=== PATIENT | female | born 1955 | race Caucasian/White ===

== ENCOUNTER → 2018-10-08 | Outpatient (CLI) | payer MEDICARE, BC | END | disposition home or self-care (01) | LOC: PLD 09:26 → LAB SHORT 09:26 | DX: L82.1 Other seborrheic keratosis (principal) | CPT/HCPCS: 88305 ==

== ENCOUNTER 2018-10-12 07:19 | Day surgery (SDC) | payer MEDICARE, BC ==
[~2018-10-12] VITALS: Ht 167.6 cm; Wt 79.5 kg
--- NOTE | 2018-10-12 08:03 | NUR ---
10/12/18 0803 Janice Braden V PT RESTING IN BED, SIDE RAILS IN PLACE, CALL LIGHT WITHIN REACH, VSS. PT TEACHING COMPLETED/ PT DENIES PAIN, DISCOMFORT, AND QUESTIONS AT THIS POINT.
--- NOTE | 2018-10-12 14:32 | NUR ---
10/12/18 1432 Km Mccall LATE ENTRY NARRATIVE PATIENT INTO SDU RECLINER, RESTING COMFORTABLY, VSS, TOLERATING PO FLUIDS WELL, IS CHAIRSIDE, PATIENT DENIES PAIN AND N/V. DISCHARGE INSTRUCTIONS REVIEWED WITH PATIENT AND , BOTH DENY ANY QUESTIONS AT THIS TIME. NURSE ASSISTED PATIENT OUT VIA WC TO HER RIDE HOME
== END 2018-10-12 10:30 | disposition home or self-care (01) ==
LOC: ORSCSDS 07:19
DX: M20.11 Hallux valgus (acquired), right foot (principal)
CPT/HCPCS: C1713; C1769; J0690; J3010; J7120

== ENCOUNTER 2018-10-31 06:55 | Day surgery (SDC) | payer MEDICARE, BC ==
[~2018-10-31] VITALS: Ht 167.6 cm; Wt 77.1 kg
--- NOTE | 2018-10-31 07:28 | NUR ---
Ambulatory in Day Surgery. Patient states colon prep results clear. History, Chart, Medications and Allergies reviewed before start of procedure. Lungs clear T/O to Auscultation. Patient confirms NPO status and agrees with scheduled surgery. Patient States Post-Procedure ride home has been arranged.
--- NOTE | 2018-10-31 08:07 | NUR ---
10/31/18 0807 Stone Londono PATIENT DETERMINED TO BE ASA APPROPRIATE FOR PROPOFOL SEDATION PRIOR TO START OF PROCEDURE BY 3-LEAD EKG REVIEWED WITH PHYSICIAN PRIOR TO START OF PROCEDURE.Patient to ENDO 1History, Chart, Medications and Allergies reviewed before start of procedure.MONITOR INTACT WITH CONTINUOUS PULSE OXIMETRY AND INTERMITTENT BP.O2 VIA N/C INTACT THROUGHOUT SEDATION/PROCEDURE.
--- NOTE | 2018-10-31 09:10 | NUR ---
Discharge instructions reviewed with patient. Patient verbalizes understanding. Copy given to patient to take home. PATIENT REPORTS MILD ABDOMINAL DISCOMFORT. DENIES QUESTIONS OR CONCERNS RELATED TO DISCHARGE. Discharged via wheelchair to private car for ride home.
== END 2018-10-31 22:43 | disposition home or self-care (01) ==
LOC: ORSCMMR 06:55 → ORD 08:00 → ORSCMMR 08:00
PROVIDERS: Internal Medicine Gastroenterology
PROC: 0DBE8ZX Excision of Large Intestine, Via Natural or Artificial Opening Endoscopic, Diagnostic (ICD-10-PCS; principal; 2018-10-31 08:00)
PROC: 0DBH8ZX Excision of Cecum, Via Natural or Artificial Opening Endoscopic, Diagnostic (ICD-10-PCS; principal; 2018-10-31 08:00)
PROC: 0DBK8ZX Excision of Ascending Colon, Via Natural or Artificial Opening Endoscopic, Diagnostic (ICD-10-PCS; principal; 2018-10-31 08:00)
DX: R10.33 Periumbilical pain (principal); D12.0 Benign neoplasm of cecum; D12.2 Benign neoplasm of ascending colon; K56.699 Other intestinal obstruction unspecified as to partial versus complete obstruction; K57.30 Diverticulosis of large intestine without perforation or abscess without bleeding; I10 Essential (primary) hypertension; K52.9 Noninfective gastroenteritis and colitis, unspecified; Z86.010 Personal history of colon polyps
CPT/HCPCS: 88305; J7120

== ENCOUNTER 2018-11-27 08:33 | Day surgery (SDC) | payer MEDICARE, BC ==
[~2018-11-27] VITALS: Ht 170.2 cm; Wt 77.1 kg
--- NOTE | 2018-11-27 09:05 | NUR ---
Ambulatory in Day SurgeryPatient states colon prep results clear. History, Chart, Medications and Allergies reviewed before start of procedure.Lungs clear T/O to Auscultation. Patient confirms NPO status and agrees with scheduled surgery. Patient States Post-Procedure ride home has been arranged.
--- NOTE | 2018-11-27 09:58 | NUR ---
11/27/18 0958 Susie Joyner History, Chart, Medications and Allergies reviewed before start of procedure.PATIENT DETERMINED TO BE ASA APPROPRIATE FOR PROPOFOL SEDATION PRIOR TO START OF PROCEDURE BY .MONITOR INTACT WITH CONTINUOUS PULSE OXIMETRY AND INTERMITTENT BP.3-LEAD EKG REVIEWED WITH PHYSICIAN PRIOR TO START OF PROCEDURE.O2 VIA N/C INTACT THROUGHOUT SEDATION/PROCEDURE.
--- NOTE | 2018-11-27 10:37 | NUR ---
INTO STEP VIA CHRISTOPHER. PT REMAINS SLEEPY, BUT AWAKENS TO VOICE. VS WDL.
--- NOTE | 2018-11-27 11:30 | NUR ---
Patient up to Ambulate independently. Gait steady. Discharge instructions reviewed with patient. Patient verbalizes understanding. Copy given to patient to take home. Discharged via wheelchair to private car for ride home.
== END 2018-11-27 11:30 | disposition home or self-care (01) ==
LOC: ORSCMMR 08:33 → ORD 09:30 → ORSCMMR 11:30
PROVIDERS: Internal Medicine Gastroenterology
PROC: 3E0H8GC Introduction of Other Therapeutic Substance into Lower GI, Via Natural or Artificial Opening Endoscopic (ICD-10-PCS; principal; 2018-11-27 09:30)
PROC: 0D7N8ZZ Dilation of Sigmoid Colon, Via Natural or Artificial Opening Endoscopic (ICD-10-PCS; principal; 2018-11-27 09:30)
DX: K57.30 Diverticulosis of large intestine without perforation or abscess without bleeding (principal); K56.699 Other intestinal obstruction unspecified as to partial versus complete obstruction; R19.4 Change in bowel habit; R10.9 Unspecified abdominal pain; K64.8 Other hemorrhoids
CPT/HCPCS: C1726; J2704; J3301; J7120